=== PATIENT | female | born 1930 | race Caucasian/White ===

== ENCOUNTER 2016-10-08 11:11 | Outpatient (CLI) | payer MEDICARE, OTHER | END 2016-10-08 11:12 | disposition home or self-care (01) | DX: E78.00 Pure hypercholesterolemia, unspecified (principal); I48.0 Paroxysmal atrial fibrillation ==

== ENCOUNTER 2017-03-12 07:31 | Day surgery (SDC) | payer MEDICARE, OTHER ==
[~2017-03-12 07:31] MED LIST: CYCLOPENTOLATE 1% OPHTH DROPS 2 ML ONE; KETOROLAC 0.45% OPHTH DROPS ONE; PHENYLEPHRINE 2.5% OPHTH 2 ML DROPS ONE; PROPARACAINE 0.5% OPHTH DROPS 15 ML ONE
[2017-03-12] MEDS ORDERED: CYCLOPENTOLATE 1% OPHTH DROPS 2 ML OPTH ONE (07:50)
[2017-03-12] MEDS ORDERED: PHENYLEPHRINE 2.5% OPHTH 2 ML DROPS OPTH ONE (07:50)
[2017-03-12] MEDS ORDERED: KETOROLAC 0.45% OPHTH DROPS OPTH ONE (07:50)
[2017-03-12] MEDS ORDERED: PROPARACAINE 0.5% OPHTH DROPS 15 ML OPTH ONE ×2 (07:50→08:57)
[2017-03-12] MEDS ORDERED: LACTATED RINGERS 500 ML IV ONE (08:04)
[2017-03-12] MEDS ORDERED: LACTATED RINGERS 1,000 ML IV ONE (08:04)
[2017-03-12] MEDS ORDERED: BRIMONIDINE 0.2% OPHTH DROPS 5 ML OPTH ONE (08:56)
[2017-03-12] MEDS ORDERED: EPINEPHrine 1 MG/ML AMP IVP ONE (08:56)
[2017-03-12] MEDS ORDERED: CHONDR SULF/HYALURONATE SYRINGE IO ONE (08:57)
[2017-03-12] MEDS ORDERED: TIMOLOL 0.5% OPHTH DROPS OPTH ONE (08:57)
[2017-03-12] MEDS ORDERED: BSS/LIDOCAINE/EPINEPHRINE 1 ML SYRINGE IO ONE ×2 (08:57)
[2017-03-12] MEDS ORDERED: TRIAMCIN/MOXIFLOX/VANCO 1 ML VIAL IO ONE ×2 (08:58)
[2017-03-12 09:57] VITALS: BP 123/73
--- NOTE | 2017-03-13 06:32 | OPERATIVE REPORT ---
PREOPERATIVE DIAGNOSIS: Visually significant cataract right eye. Cataract surgery was performed on roberto longoria left eye 24 June 2012 and astigmatism correction of that left eye was also performed [place] [facility] [place] LenSx [place]. POSTOPERATIVE DIAGNOSIS: Visually significant cataract right eye. Cataract surgery was performed on the left eye 24 June 2012 and astigmatism correction of that left eye was also performed today [facility] [place] LenSx laser. NAME OF PROCEDURE: Phacoemulsification posterior chamber intraocular lens implant, right eye. SURGEON: Renaldo Burden M.D. ANESTHESIA: Monitored anesthesia care. COMPLICATIONS: None. OPERATIVE INDICATIONS: This is an 86-year-old woman with progressive vision loss in the right eye due to 2+ nuclear sclerotic and 3+ cortical cataract. Best corrected visual acuity was 20/25 with glare to 20/80 in the right eye. INDICATIONS FOR SURGERY: Difficulty seeing street signs, difficulty driving in low light or night, di fficulty driving at night because of headlights and difficulty with glare of bright lights in any sit uation. She was consented at length concerning risks and benefits of cataract surgery after which she expressed a desire to proceed with surgery. OPERATIVE PROCEDURE: The patient was taken into OR #2 and placed under monitored anesthesia care. A s urgical timeout was conducted confirming correct patient, correct procedure and correct surgical site s. She was placed under the LenSx laser and her left eye was docked to the laser interface. The laser performed ocular keratotomy incisions on the left eye to correct the astigmatism. The laser was then undocked from the left eye and then docked to the right eye and the laser on the right eye performed a capsulotomy, lens softening, phaco-wounds and ocular keratotomy incision. After the right eye was undocked, she was then moved to the operating microscope, given topical anesthesia and prepped and dr steven in the usual sterile fashion. The eye was entered at 12 and 9 o'clock positions. Intracameral Sh ugarcaine was injected into the anterior chamber followed by Viscoat. Capsulorhexis flap created by t he LenSx laser was removed from the anterior chamber. The nucleus was hydrodissected and phacoemulsif ied. The cortex was evacuated using automated and infusion aspiration. Provisc was injected in the ca psular bag and a 21.5 Diopter intraocular lens inserted into the bag. Approximately 0.8 mL of a mixtu re of triamcinolone, moxifloxacin, vancomycin was injected in the subconjunctival and superior quadra nt for infection and inflammation prophylaxis. I/A was used to evacuate the viscoelastic structures. The eye was inflated to a physiologic pressure using balanced salt solution and found to be watertigh t. The patient was taken from the operating room in good condition and postoperative instructions. JOB #: [id number] EXT JOB #:[id number]
== END 2017-03-12 07:32 | disposition home or self-care (01) ==
LOC: SDS 07:31
PROVIDERS: ATTEND Ophthalmology
PROC: 08RJ3JZ Replacement of Right Lens with Synthetic Substitute, Percutaneous Approach (ICD-10-PCS; principal; 2017-03-12 08:30)
DX: H25.811 Combined forms of age-related cataract, right eye (principal); R41.0 Disorientation, unspecified; I10 Essential (primary) hypertension; I48.91 Unspecified atrial fibrillation; Z79.01 Long term (current) use of anticoagulants; Z96.641 Presence of right artificial hip joint

== ENCOUNTER 2017-03-12 10:11 | Emergency (ER) | payer MEDICARE, OTHER ==
--- NOTE | 2017-03-12 10:54 | ED Physician Documentation ---
History of Present Illness - Stated complaint Stated Complaint: POST SURG COMPLICATIONS - Chief complaint Chief Complaint: Neuro - Additonal information Additional information: hx from pt and DOP 86 f on coumadin for a fib had cataract surgery at this AM awoke 545 in normal health from 630AM-720AM while still at home she had a period of extreme and very atypical confusion and memory loss - repeatedly asked the same questions and could not rememeber where things were now resolved DOP states she checked her mother and there were no speech visopn motor or sensory abn other than the acute confuions no LOPEZ CP AP no recent fever cough NVD did not have to stop coumadin prior to surgery FSBS in OR was not low had her surgery and then sent to ER for work up Review of Systems Constitutional: denies: Fever, Chills Eyes: denies: Decreased vision Ears: denies: Loss of hearing Cardiac: denies: Chest pain / pressure Respiratory: denies: Dyspnea, Cough GI: denies: Abdominal Pain Neurologic: reports: Confused. denies: Generalized weakness, Focal weakness, Numbness, Difficulty speaking, Headache, Head injury Endocrine: reports: Easy bruising / bleeding Immunocompromised: denies: Immunocompromised PD PAST MEDICAL HISTORY - Past Medical History Cardiovascular: Hypertension, Atrial fibrillation Respiratory: None, Tuberculosis Endocrine/Autoimmune: None GI: None : Other HEENT: Chronic vision loss Psych: None Musculoskeletal: Osteoarthritis Derm: None - Past Surgical History Past Surgical History: Yes General: Cholecystectomy, Appendectomy Ortho: Hip replacement - Present Medications Home Medications: Ambulatory Orders Medication Instructions Recorded Confirmed Acetaminophen [Tylenol] 650 mg PO Q6H PRN #30 tablet 10/17/13 03/12/17 Potassium Chloride 20 meq PO BID 10/17/13 03/12/17 Verapamil HCl [Verapamil ER] 240 mg PO HS 10/17/13 03/12/17 Warfarin Sodium [Coumadin] 2 mg PO DAILY 10/17/13 03/12/17 Triamterene [Dyrenium] 50 mg PO DAILY 03/12/17 03/12/17 - Allergies Allergies/Adverse Reactions: Allergies Allergy/AdvReac Type Severity Reaction Status Date / Time No Known Drug Allergies Allergy Verified 10/17/13 07:53 - Social History Does the pt smoke?: No Smoking Status: Never smoker Does the pt drink ETOH?: Yes ETOH Use: Wine Does the pt have substance abuse?: No - POLST Patient has POLST: No PD ED PE NORMAL - Vitals Vital signs reviewed: Yes - General General: Alert and oriented X 3 - HEENT HEENT: No: PERRL (post cataract surgery with shield on dilated R eye) - Neck Neck: Supple, no meningeal sign - Cardiac Cardiac: RRR - Respiratory Respiratory: No respiratory distress, Clear bilaterally - Abdomen Abdomen: Soft, Non tender - Neuro Neuro: Alert and oriented X 3, 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, No motor deficit, No sensory deficit, Normal speech, Other (NIHSS at 1045 zero) Results - Vitals Vitals: Vital Signs - 24 hr 03/12/17 03/12/17 03/12/17 10:14 12:35 14:12 Temperature 36.7 C 36.4 C L Heart Rate 100 83 74 Respiratory 18 16 19 Rate Blood Pressure 138/103 H 110/68 148/76 H O2 Saturation 95 97 97 Oxygen O2 Source Room air - EKG (time done) 1108 Rate: Rate (enter#) (83) Rhythm: Atrial fibrillation Ischemia: Non specific changes - Labs Labs: Laboratory Tests 03/12/17 03/12/17 03/12/17 10:49 10:49 10:49 WBC 5.8 RBC 5.05 Hgb 16.5 H Hct 49.5 H MCV 98.0 MCH 32.8 H MCHC 33.4 RDW 14.4 Plt Count 182 MPV 8.6 Neut # 4.6 Lymph # 0.7 L [place] # 0.3 Eos # 0.0 Baso # 0.1 Absolute Nucleated RBC 0.00 Nucleated RBCs 0.1 PT 32.7 H INR 2.9 H Sodium 140 Potassium 3.1 L Chloride 106 Carbon Dioxide 25 Anion Gap 9.0 BUN 22 H Creatinine 1.2 H Estimated GFR (MDRD) 42 L Glucose 176 H Calcium 9.5 Urine Color Urine Clarity Urine pH Ur Specific [place] Urine Protein Urine Glucose (UA) Urine Ketones Urine Occult Blood Urine Nitrite Urine Bilirubin Urine Urobilinogen Ur Leukocyte Esterase Urine RBC Urine WBC Ur Squamous Epith Cells Urine Bacteria Ur Microscopic Review Urine Culture Comments 03/12/17 11:05 WBC RBC Hgb Hct MCV MCH MCHC RDW Plt Count MPV Neut # Lymph # [place] # Eos # Baso # Absolute Nucleated RBC Nucleated RBCs PT INR Sodium Potassium Chloride Carbon Dioxide Anion Gap BUN Creatinine Estimated GFR (MDRD) Glucose Calcium Urine Color YELLOW Urine Clarity HAZY Urine pH 6.0 Ur Specific [place] 1.020 Urine Protein NEGATIVE Urine Glucose (UA) NEGATIVE Urine Ketones NEGATIVE Urine Occult Blood SMALL H Urine Nitrite NEGATIVE Urine Bilirubin NEGATIVE Urine Urobilinogen 0.2 (NORMAL) Ur Leukocyte Esterase SMALL H Urine RBC 0-5 Urine WBC 6-10 H Ur Squamous Epith Cells MOD Squamous H Urine Bacteria Few Ur Microscopic Review INDICATED Urine Culture Comments NOT INDICATED - Rads (name of study) CTH Radiology: See rad report (no acute) carotid doppler Radiology: See rad report (mild plaque, no stenosis) echo Radiology: See rad report (no thrombus, but there was a mild to mod pericardial effusion without tamponade and a thickened septum with some outflow obstruction per architectural technician) PD MEDICAL DECISION MAKING - ED course ED course: possibel TIA therapeutic on coumadin and no thrombus on echo, carotics clean, neg CTH - feel safe to dc but echo was abn - pericard effusion and peft vent septal hypertophy with some outflow obstruction - these are unlikely to be realted to pt sx today, likely not new just found on eval for another problem, d/w no doc cardio at [facility] (pts a fib managed by PMD, 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) and Dr Dyer agrees to see pt in fup at time od dc I note a set of vitals documenting sat 86% - pt is not SOA - no cough - nl sats the rest of the day - rechecked and it is mid 90s again on RA with no intervention - will dc as planned Departure - Departure Disposition: 01 Home, Self Care Clinical Impression: Confusion Condition: Good Follow-Up: Douglas Villegas MD [Provider Admit Priv/Credential] - Comments: The period of confusion this morning may have been a TIA / mini stroke But the ER work up today - including a CT brain, carotid dopplers and an echocardiogram did not show any potentially fixable cause of strokes or mini strokes - and your coumadin level is therapeutic So, since you are feeling better, I think it is safe for you to go home. Your echocardiogram did show two abnormalities though - some fluid around the heart and a thickened septum making it difficult for the blood to be pumped out of the heart - I spoke to a door furring installer at [place] in [place] and she would like to see you in her clinic for further evaluation - please call the office at and ask for Christine Also follow up with Dr Villegas when he gets back And you potassium was sliughtly low so please keep taking your potassium supplements and have Dr Villegas recheck the level
[2017-03-12 11:00] LABS: BASOPHILS # (AUTO) 0.1 10^3/uL (0.0-0.1); BASOPHILS % (AUTO) 0.9 %; EOSINOPHILS % (AUTO) 0.8 %; HCT - HEMATOCRIT 49.5 % (37.0-47.0); HGB - HEMOGLOBIN 16.5 g/dL (12.0-16.0); LYMPHOCYTES # (AUTO) 0.7 10^3/uL (1.5-3.5); LYMPHOCYTES % (AUTO) 12.8 %; MEAN CORPUSCULAR HEMOGLOBIN 32.8 pg (27.0-31.0); MEAN CORPUSCULAR HGB CONC 33.4 g/dL (32.0-36.0); MEAN PLATELET VOLUME 8.6 fL (7.9-10.8); MONOCYTES # (AUTO) 0.3 10^3/uL (0.0-1.0); MONOCYTES % (AUTO) 5.8 %; NEUTROPHILS # (AUTO) 4.6 10^3/uL (1.5-6.6); NEUTROPHILS % (AUTO) 79.7 %; NUCLEATED RED BLOOD CELLS AUTO 0.1 /100WBC; RED BLOOD COUNT 5.05 10^6/uL (4.20-5.40); RED CELL DISTRIBUTION WIDTH 14.4 % (12.0-15.0); UNCORRECTED WHITE BLOOD COUNT 5.8 x10^3/uL; WHITE BLOOD COUNT 5.8 x10^3/uL (4.8-10.8)
[2017-03-12 11:04] LABS: CALCIUM 9.5 mg/dL (8.5-10.3); CREATININE 1.2 mg/dL (0.4-1.0); POTASSIUM 3.1 mmol/L (3.5-5.0)
[2017-03-12 11:07] LABS: INR 2.9 (0.8-1.2); PT - PROTHROMBIN TIME 32.7 secs (9.9-12.6)
[2017-03-12 11:21] LABS: BILIRUBIN,URINE NEGATIVE (NEGATIVE); UA w/ MICROSCOPIC CHARGE YES
[2017-03-12 11:39] LABS: UR CULTURE IF IND NOT INDICATED
--- NOTE | 2017-03-12 12:01 | CT Preliminary Report ---
Exam: CT Head W/O IMPRESSION: 1. Findings of chronic mild cortical volume loss and chronic microangiopathy. 2. No evidence of acute intracranial hemorrhage. [facility] SITE ID: [id number]
--- NOTE | 2017-03-12 12:04 | CT Report ---
EXAM: CT HEAD EXAM DATE: 03/12/2017 11:30 AM. CLINICAL HISTORY: Tia sx on coumadin. COMPARISON: None. TECHNIQUE: Multiaxial CT images were obtained from the foramen magnum to the vertex. IV contrast: Non e. Reformats: Coronal. In accordance with CT protocol optimization, one or more of the following dose reduction techniques w ere utilized for this exam: automated exposure control, adjustment of mA and/or KV based on patient s ize, or use of iterative reconstructive technique. FINDINGS: There is prominence of the extra-axial CSF spaces, most pronounced in the frontal regions. Ventricles appear normal in size and position. Periventricular and deep white matter hypodensities, more pronou nced at the left external and extreme capsule. No evidence of acute intracranial hemorrhage or mass e ffects. Visualized portions of the paranasal sinuses appear normally aerated. No fracture. No destruc tive bone lesion. IMPRESSION: 1. Findings of chronic mild cortical volume loss and chronic microangiopathy. 2. No evidence of acute intracranial hemorrhage. [facility] Referring Provider Line: [phone] SITE ID: [id number]
[2017-03-12 15:04] VITALS: BP 132/74
--- NOTE | 2017-03-13 09:22 | Ultrasound Report ---
CAROTID DUPLEX: 03/12/2017 CLINICAL INDICATION: TIA. TECHNIQUE: Real-time sonographic vascular imaging was performed by the cobbler mckay through the carotid arteries utilizing both color-flow and Doppler spectral analysis. Multiple veterans service representative static images were saved for review. Vessel PSV cm/sec 2D Plaque Estimate % ICA/CCA PSV EDV cm/sec % Stenosis RCCA Prox 75 -- RCCA Dist 37 4 RECA 68 -- RT BULB 37 -- 1.0 6 MAXIMO Prox 32 -- 0.86 7 MAXIMO Mid 51 -- 0.84 15 MAXIMO Dist 52 -- 1.41 16 RVA 41 RVA flow direction: Antegrade. Vessel PSV cm/sec 2D Plaque Estimate % ICA/CCA PSV EDV cm/sec % Stenosis LCCA Prox 63 -- LCCA Dist 38 8 LECA 68 -- LFT BULB 33 -- 0.87 8 LICA Prox 27 -- 0.71 9 LICA Mid 56 -- 1.47 15 LICA Dist 58 -- 1.53 25 LVA 33 LVA flow direction: Antegrade. Velocity criteria are extrapolated from diameter data as defined by the Society of Radiologists in Ultrasound Consensus Conference Radiology 2003; 229; 340-346. Degree of Stenosis % ICA PSV cm/sec Plaque Estimate % ICA/CCA RSV Ratio ICA EDV cm/sec Normal < 125 None < 2.0 < 40 <50 < 125 < 50 < 2.0 < 40 50-69 125 - 130 >/= 50 2.0 - 4.0 40 - 100 >/= 70 but less than near occlusion > 230 >/= 50 > 4.0 > 100 Near occlusion High, low, or undetectable Visible lumen Variable Variable Total occlusion Undetectable No detectable lumen Not applicable Not applicable FINDINGS RIGHT: There is mild plaquing in the right carotid bifurcation, without evidence of a focal hemodynamically significant carotid stenosis. LEFT: There is mild plaquing in the left carotid bifurcation, without evidence of a focal hemodynamically significant stenosis. The vertebral arteries demonstrate antegrade flow bilaterally. IMPRESSION: NO EVIDENCE OF A FOCAL HEMODYNAMICALLY SIGNIFICANT CAROTID STENOSIS. MTDD
== END 2017-03-12 15:09 | disposition home or self-care (01) ==
LOC: ED 10:11
DX: R41.0 Disorientation, unspecified (principal); I48.91 Unspecified atrial fibrillation; I31.3 Pericardial effusion (noninflammatory); I10 Essential (primary) hypertension; E87.6 Hypokalemia; Z98.890 Other specified postprocedural states; Z79.01 Long term (current) use of anticoagulants
CPT/HCPCS: 36415; 70450; 80048; 81001; 81003; 85025; 85610; 87086; 93005; 93306; 93880; 99284

== ENCOUNTER 2017-06-08 13:07 | Outpatient (CLI) | payer MEDICARE, OTHER ==
[2017-06-08 19:27] LABS: BASOPHILS # (AUTO) 0.1 10^3/uL (0.0-0.1); BASOPHILS % (AUTO) 1.1 %; EOSINOPHILS # (AUTO) 0.1 10^3/uL (0.0-0.7); EOSINOPHILS % (AUTO) 0.9 %; HCT - HEMATOCRIT 52.4 % (37.0-47.0); HGB - HEMOGLOBIN 17.3 g/dL (12.0-16.0); LYMPHOCYTES # (AUTO) 0.9 10^3/uL (1.5-3.5); LYMPHOCYTES % (AUTO) 16.3 %; MEAN CORPUSCULAR HEMOGLOBIN 32.9 pg (27.0-31.0); MEAN CORPUSCULAR HGB CONC 32.9 g/dL (32.0-36.0); MONOCYTES # (AUTO) 0.5 10^3/uL (0.0-1.0); MONOCYTES % (AUTO) 9.4 %; NEUTROPHILS % (AUTO) 72.3 %; NUCLEATED RED BLOOD CELLS AUTO 0.2 /100WBC; RED BLOOD COUNT 5.24 10^6/uL (4.20-5.40); RED CELL DISTRIBUTION WIDTH 14.8 % (12.0-15.0); UNCORRECTED WHITE BLOOD COUNT 5.5 x10^3/uL; WHITE BLOOD COUNT 5.5 x10^3/uL (4.8-10.8)
[2017-06-08 19:36] LABS: ALBUMIN/GLOBULIN RATIO 1.6 (1.0-2.2); BILIRUBIN,TOTAL 0.8 mg/dL (0.2-1.0); BUN - BLOOD UREA NITROGEN 20 mg/dL (6-20); CALCIUM 10.2 mg/dL (8.5-10.3); CARBON DIOXIDE - CO2 26 mmol/L (21-32); CHLORIDE 102 mmol/L (101-111); GFR - MDRD 52 (>89); GLUCOSE 86 mg/dL (70-100); POTASSIUM 4.1 mmol/L (3.5-5.0); SODIUM 138 mmol/L (135-145); TOTAL PROTEIN 6.8 g/dL (6.7-8.2)
[2017-06-08 19:42] LABS: THYROID STIMULATING HORMONE 1.42 uIU/mL (0.34-5.60)
[2017-06-08 19:53] LABS: FOLATE 21.8 ng/mL (5.90 - >24.8)
== END 2017-06-08 13:08 | disposition home or self-care (01) ==
LOC: LAB.WCP 13:07
PROVIDERS: ATTEND Physician Assistant Medical
DX: R41.3 Other amnesia (principal); I48.0 Paroxysmal atrial fibrillation; E55.9 Vitamin D deficiency, unspecified; I10 Essential (primary) hypertension; E87.6 Hypokalemia; Z79.01 Long term (current) use of anticoagulants
CPT/HCPCS: 36415; 80053; 82306; 82607; 82746; 84443; 85025

== ENCOUNTER 2017-06-29 12:49 | Outpatient (CLI) | payer MEDICARE, OTHER ==
--- NOTE | 2017-06-29 16:27 | Ultrasound Report ---
RIGHT BREAST ULTRASOUND: 06/29/2017 CLINICAL INDICATION: Palpable abnormality right breast. TECHNIQUE: Real-time scanning was performed with litigation claim representative static images obtained. FINDINGS: Ultrasound of the palpable abnormality was performed. At the 9:30 position, 4 cm from the nipple, there is a 3.8 x 2.7 x 2.6 cm hypoechoic mass with associ ated calcifications. The margins are lobulated. There is peripheral vascularity present. The findings are highly suggestive of malignancy. No axillary adenopathy is appreciated. IMPRESSION: FINDINGS HIGHLY SUGGESTIVE OF MALIGNANCY, WITH A HYPOECHOIC 3.8 CM MASS CORRELATING WITH THE PALPABLE AND MAMMOGRAPHIC ABNORMALITY. RECOMMENDATION: BIOPSY. THE MASS APPEARS AMENABLE TO ULTRASOUND-GUIDED CORE NEEDLE BIOPSY. BIRADS CATEGORY 5-HIGHLY SUGGESTIVE OF MALIGNANCY. Results and recommendations discussed with the patient at the time of the examination, and called to Dr. Eng, covering for Dr. Villegas, on 06/29/2017. Biopsy is scheduled for 07/14/2017 at 9:45 a.m. JOB #: [id number] EXT JOB #:[id number]
--- NOTE | 2017-06-30 10:28 | Mammography Report ---
DIGITAL DIAGNOSTIC BILATERAL MAMMOGRAM: 06/29/2017 CLINICAL INDICATION: Palpable mass right upper outer quadrant. COMPARISON: 09/15/2011, 08/26/2011, 03/13/2008. TECHNIQUE: Bilateral CC and MLO views, right true lateral view. A marker was placed at the site of the palpable abnormality. FINDINGS: The breasts again demonstrate scattered fibroglandular densities bilaterally. In the right upper outer quadrant, at the site of palpable abnormality, there is an approximately 3 cm mass, with associated calcifications. Please also refer to right breast ultrasound of the same day. No mammographically suspicious findings are appreciated in the left breast. IMPRESSION: FINDINGS HIGHLY SUGGESTIVE OF MALIGNANCY, WITH A HYPOECHOIC SHADOWING MASS ON ULTRASOUND CORRELATING WITH THE MAMMOGRAPHIC AND PALPABLE ABNORMALITY. RECOMMENDATION: BIOPSY. THE LESION APPEARS AMENABLE TO ULTRASOUND-GUIDED CORE NEEDLE BIOPSY. BIRADS CATEGORY 5-HIGHLY SUGGESTIVE OF MALIGNANCY. Results and recommendations discussed with the patient at the time of the examination, and called to Dr. Eng, covering for Dr. Villegas, on 06/29/2017. Biopsy is scheduled for 07/14/2017 at 9:45 a.m. STANDARD QUALIFYING STATEMENTS 1. This examination was reviewed with the aid of Computer-Aided Detection (CAD). 2. A negative or benign imaging report should not delay biopsy if clinically suspicious findings are present. Consider surgical consultation if warranted. More than 5% of cancers are not identified by imaging. 3. Dense breasts may obscure an underlying neoplasm. JOB #: [id number] EXT JOB #: [id number] DIVYA
== END 2017-06-29 12:50 | disposition home or self-care (01) ==
LOC: DI 12:49
PROVIDERS: ATTEND Family Medicine
DX: N63.11 Unspecified lump in the right breast, upper outer quadrant (principal)
CPT/HCPCS: 76642; G0204; 77066

== ENCOUNTER 2017-07-27 09:10 | Outpatient (CLI) | payer MEDICARE, OTHER ==
[2017-07-27] MEDS ORDERED: BUFFERED LIDOCAINE 10 ML SYRINGE IU ONE (11:29)
[2017-07-27] MEDS ORDERED: BUPIVACAINE 0.25%-EPI 1:200000 PF 30 ML VIAL SUBQ ONE (11:29)
[2017-07-27 15:12] VITALS: BP 149/92
--- NOTE | 2017-07-28 09:36 | Ultrasound Report ---
ULTRASOUND-GUIDED CORE NEEDLE BIOPSY RIGHT BREAST: 07/27/2017 CLINICAL INDICATION: Suspicious mass right upper outer quadrant. FINDINGS: Following obtaining informed consent, the patient's right breast was prepped and draped in the usual sterile fashion. The skin and soft tissues were anesthetized with lidocaine. Using a 12-gauge Celero vacuum-assisted device, four specimens were obtained. A Celero marker was placed into the biopsy cavity under ultrasound guidance. The patient was taken to a separate mammography machine, and a two-view digital mammogram was performed, documenting the marker in the lesion and no significant post-biopsy hematoma. The wound was dressed and ice applied. The patient was observed for approximately 15 minutes, then was discharged from [facility] in good condition following instructions on wound care and obtaining biopsy results. The tissue was sent for histologic analysis. IMPRESSION: ULTRASOUND-GUIDED BIOPSY OF THE RIGHT BREAST. AN ADDENDUM WILL BE MADE TO THIS REPORT WHEN PATHOLOGY IS REVIEWED TO ESTABLISH CONCORDANCE. DIVYA
== END 2017-07-27 09:11 | disposition home or self-care (01) ==
LOC: DI 09:10
PROVIDERS: ATTEND Family Medicine
DX: C50.411 Malignant neoplasm of upper-outer quadrant of right female breast (principal); Z17.0 Estrogen receptor positive status [ER+]
CPT/HCPCS: 19083; G0206; 88305; 88341; 88342; 88360

== ENCOUNTER 2017-08-22 08:37 | Outpatient (CLI) | payer MEDICARE, OTHER ==
[~2017-08-22 08:37] MED LIST changes: -CYCLOPENTOLATE 1% OPHTH DROPS 2 ML ONE; +IOPAMIDOL-300 100 ML VIAL ONE; +IOPAMIDOL-300 50 ML VIAL ONE; -KETOROLAC 0.45% OPHTH DROPS ONE; -PHENYLEPHRINE 2.5% OPHTH 2 ML DROPS ONE; -PROPARACAINE 0.5% OPHTH DROPS 15 ML ONE
[2017-08-22] MEDS ORDERED: IOPAMIDOL-300 50 ML VIAL PO ONE (11:16)
[2017-08-22] MEDS ORDERED: IOPAMIDOL-300 100 ML VIAL IVP ONE (11:16)
--- NOTE | 2017-08-22 14:06 | CT Report ---
EXAM: CT ABDOMEN AND PELVIS EXAM DATE: 08/22/2017 11:17 AM. CLINICAL HISTORY: R BREAST CANCER. COMPARISONS: 10/17/2013 TECHNIQUE: Routine helical CT imaging was performed through the abdomen and pelvis. IV contrast: 100M L OF ISOVUE 300. Enteric contrast: No. Reconstructions: Coronal and sagittal. In accordance with CT protocol optimization, one or more of the following dose reduction techniques w ere utilized for this exam: automated exposure control, adjustment of mA and/or KV based on patient s ize, or use of iterative reconstructive technique. FINDINGS: Lung Bases: Pericardial effusion, incidentally noted. Prominent interstitial markings. Three small (2 -3 mm) right lower lobe nodules, incompletely visualized on this examination. Liver: Grossly normal. No masses. Gallbladder/Bile Ducts: Gallbladder surgically absent. No ductal dilation. Spleen: Normal. Pancreas: Fatty replaced. Adrenal Glands: Normal. Kidneys: Diffuse bilateral cortical thinning. No obstructive uropathy. Peritoneal Cavity/Bowel: Moderate retained stool. Scattered diverticula are most concentrated in the sigmoid distribution. No wall thickening . No free or pneumatosis. Few small / shotty mesenteric, ret roperitoneal and pelvic lymph nodes without renato adenopathy. Pelvic Organs: The bladder and visualized pelvic organs are grossly unremarkable. Vasculature: Advanced atherosclerotic calcifications in the aorta and distal arteries. No aneurysmal dilation. Bones: Demineralization and multilevel degenerative changes. Other: Fat-containing inguinal hernias. Post right hip prostheses. Possible adjacent intramuscular lipoma. No acute IMPRESSION: 1. Small pulmonary nodules noted in the right lung base, as described. Recommend thoracic CT for furt her evaluation in the setting of primary malignancy. 2. No evidence for intra-abdominal metastases metastatic disease. 3. Diverticulosis without evidence for active diverticulitis. Reference additional comments above. [facility] Referring Provider Line: [phone] SITE ID: [id number]
== END 2017-08-22 08:38 | disposition home or self-care (01) ==
LOC: LAB 08:37
PROVIDERS: ATTEND Surgery
DX: R91.8 Other nonspecific abnormal finding of lung field (principal); K57.90 Diverticulosis of intestine, part unspecified, without perforation or abscess without bleeding
CPT/HCPCS: 36415; 74177; 82565; Q9967

== ENCOUNTER 2017-09-01 08:26 | Day surgery (SDC) | payer MEDICARE, OTHER ==
[2017-09-01] MEDS ORDERED: LACTATED RINGERS 1,000 ML IV ONE ×2 (08:40→12:23)
[2017-09-01] MEDS ORDERED: ceFAZolin 2 GM/50 ML 2 GM/50 ML BAG IV ONE (08:41)
[2017-09-01] MEDS ORDERED: BUPIVACAINE 0.5% PF 30 ML VIAL INFIL ONE ×2 (11:52→12:51)
[2017-09-01] MEDS ORDERED: PROPOFOL 200 MG/20 ML VIAL IVP ONE (12:30)
[2017-09-01] MEDS ORDERED: LIDOCAINE-MPF 2% 5 ML VIAL IM ONE (12:30)
[2017-09-01] MEDS ORDERED: fentaNYL 100 MCG/2 ML VIAL IVP ONE (12:30)
[2017-09-01] MEDS ORDERED: MIDAZOLAM 2 MG/2 ML VIAL IVP ONE (12:30)
[2017-09-01] MEDS ORDERED: PHENYLEPHRINE 10 MG/ML VIAL IV ONE (12:30)
[2017-09-01] MEDS ORDERED: SUCCINYLCHOLINE 200 MG/10 ML VIAL IVP ONE (12:30)
--- NOTE | 2017-09-01 13:26 | OPERATIVE REPORT ---
Operative Report - General Procedure Date: 09/01/17 Planned Procedure: Right simple mastectomy Pre-Op Diagnosis: Right breast cancer Procedure Performed: Right simple mastectomy Post Op Diagnosis: Right breast cancer - Procedure Note Primary Surgeon: Ishan Anthony MD Anesthesia Provider: Christine Samuels/Romero Singh Anesthesia Technique: General ET tube IV Fluids (mL): 1,000 Estimated Blood Loss (mL): 30 Drain/Tube Type: David drain (19 Fr in RIGHT axilla going across the chest wall) Complications: None. - Other Other Information/Narrative: OPERATIVE DESCRIPTION/REPORT: After verbal and written informed consent was obtained detailing the risks of infection, bleeding requiring transfusion with its risks, nerve injury, and , and after I met with the patient confirming the surgery and the site of the surgery and after initialing the site of the surgery with a surgical marker , the patient was brought to the operative suite and placed supine on the operating table. Great care was taken to avoid pressure points to prevent pressure necrosis or nerve injury. Monitoring devices were applied along with TEDs and pneumatic compressive stockings (to prevent DVT). The patient received preoperative antibiotics for surgical prophylaxis. Christine Samuels and delmer Singh sedated and anesthetized the patient for the entire procedure. The patient was prepped and draped in the usual sterile manner. With the patient draped my initials were clearly visible. A "time in" then confirmed that the patient was identified with 3 identifiers (name, date and medical record number), the history and physical was in the chart, the signed consent confirming the procedure was in the chart, the patient was in the correct position, the aforementioned prophylactic measures were in place or given, we had the correct personnel and equipment to complete the procedure and that anesthesia, surgery and nursing were given an opportunity to express any concerns. With the agreement of everyone in the room, we proceeded with the operation. Great care was taken to ensure that the arm was placed in a relaxed manner away from the body to facilitate exposure and to avoid nerve injury. An elliptical incision was made to incorporate the nipple-areolar complex and the previous biopsy site. The skin incision was carried down to the subcutaneous fat, but no further. Using traction and counter traction, the upper flap was dissected from the chest wall, medially to the sternal border, superiorly to the clavicle, laterally to the anterior border of the latissimus dorsi muscle, and superolaterally to the insertion of the pectoralis major muscle. The lower flap was dissected in a similar manner down to the insertion of the pectoralis fascia overlying the fifth rib medially and laterally out to the latissimus dorsi. Bovie electrocautery was used for the majority of the dissection and hemostasis, tying only the large vessels with 2-0 Vicryl. The breast was dissected from the pectoralis muscle beginning medially and progressing laterally, removing the pectoralis fascia entirely. Once the lateral border of the pectoralis major muscle was identified, the pectoralis muscle was retracted medially and the interpectoral fat was removed with the specimen. Copious water lavage was used to remove any debris, and meticulous hemostasis was obtained with Bovie electrocautery. A David drain was inserted through a separate stab incision below the initial incision and cut to fit. The drain was directed anteriorly across the pectoralis major. This was secured to the skin using 3-0 Nylon which was Saulo- sandaled about the drain. The subcutaneous tissue was approximated using interrupted simple 2-0 Vicryl. The skin incision was approximated with 4-0 Monocryl in a running subcuticular manner. 30 mL of 1/2% marcaine was injected for pain control. Mastisol and steristrips were applied. A dressing was applied. The drain was placed on ``grenade suction. At this point a time out was performed that confirmed that all the counts were correct, the procedure that was performed, the blood loss, the urine output, the IV fluids administered , and the patients condition. Having tolerated the procedure well, the patient was subsequently extubated and taken to recovery room in good and stable condition.
[2017-09-01] MEDS ORDERED: LACTATED RINGERS 1,000 ML IV SCH ×2 (13:30→19:30)
[2017-09-01] MEDS ORDERED: ONDANSETRON 4 MG/2 ML VIAL IVP PRN (15:03)
[2017-09-01] MEDS ORDERED: oxyCOD/ACETAMIN 5 MG/325 MG TABLET PO PRN (15:03)
[2017-09-01] MEDS ORDERED: BENZOCAINE/MENTHOL LOZENGE MM PRN (15:51)
[2017-09-01] MEDS: PHENOL THROAT SPRAY 177 ML MM PRN (16:27)
[2017-09-01] MEDS: TRIAMT/HCTZ 37.5 MG/25 MG CAPSULE PO SCH (20:49)
[2017-09-01] MEDS ORDERED: VERAPAMIL ER 120 MG TABLET PO SCH (21:00)
[2017-09-02] MEDS: PHENOL THROAT SPRAY 177 ML MM PRN (00:10)
[2017-09-02 08:42] VITALS: BP 118/75
[2017-09-02] MEDS: TRIAMT/HCTZ 37.5 MG/25 MG CAPSULE PO SCH (09:06)
== END 2017-09-02 11:00 | disposition home or self-care (01) ==
LOC: SDS 08:26 → OBS 14:34 → SDS 09-02 11:00
PROVIDERS: ATTEND Surgery
PROC: 0HBT0ZZ Excision of Right Breast, Open Approach (ICD-10-PCS; principal; 2017-09-01 10:30)
DX: C50.911 Malignant neoplasm of unspecified site of right female breast (principal); Z17.0 Estrogen receptor positive status [ER+]; I48.91 Unspecified atrial fibrillation; Z79.01 Long term (current) use of anticoagulants; I10 Essential (primary) hypertension; Z85.51 Personal history of malignant neoplasm of bladder
CPT/HCPCS: 19303; A9270; J0690; J7120

== ENCOUNTER 2017-09-08 11:10 | Outpatient (CLI) | payer MEDICARE, OTHER ==
--- NOTE | 2017-09-08 19:42 | CT Report ---
DATE OF SERVICE: 09/08/2017 CT CHEST WITHOUT CONTRAST: 09/08/2017 CLINICAL INDICATION: Breast cancer, nodules seen on lung bases on abdominal CT. Axial CT images of the chest were obtained without intravenous contrast. COMPARISON: Images of the lung bases from 08/22/2017. The heart and great vessels demonstrate atherosclerotic disease. Calcified precarinal lymph node is noted. There is a small pericardial effusion present. The lungs demonstrate multiple bilateral noncalcified pulmonary nodules, varying in size from 3 mm to 7 mm. The appearance is suspicious for metastatic disease. No calcified granuloma is appreciated. Interstitial opacities are seen at the lung bases, which may represent dependent pulmonary edema or lymphangitic carcinomatosis. No effusion or pneumothorax is appreciated. Surgical drain of right mastectomy is noted. Limited evaluation of upper abdominal structures demonstrates normal adrenal glands. Osseous structures demonstrate degenerative changes. Right-sided thyroid goiter is incidentally noted. IMPRESSION: Widespread bilateral noncalcified pulmonary nodules, suspicious for metastatic disease. Small pericardial effusion. TD: 09/08/2017 20:41
== END 2017-09-08 11:11 | disposition home or self-care (01) ==
LOC: DI 11:10
PROVIDERS: ATTEND Surgery
DX: R91.8 Other nonspecific abnormal finding of lung field (principal); I31.3 Pericardial effusion (noninflammatory); C50.919 Malignant neoplasm of unspecified site of unspecified female breast
CPT/HCPCS: 71250

== ENCOUNTER 2017-10-01 11:11 | Outpatient (CLI) | payer MEDICARE, OTHER ==
--- NOTE | 2017-10-02 08:36 | Nuclear Medicine Report ---
EXAM: BONE SCAN EXAM DATE: 10/01/2017 05:15 PM. CLINICAL HISTORY: R BREAST CANCER. COMPARISON: CT chest 09/08/2017. CT abdomen/pelvis 08/22/2017.. TECHNIQUE: Following the intravenous administration of 29.9 mCi of technetium 99m MDP and an appropri ate delay, a whole-body scan was performed in anterior and posterior projections. Site-specific spot views of the region of interest were obtained in various projections. FINDINGS: Normal renal radiotracer uptake and bladder activity. Normal soft tissue activity. Overall normal osseous uptake. Mildly asymmetric uptake at the acromioclavicular, sternoclavicular joints, first CMC joints bilatera lly, and at the left midfoot, likely degenerative. Mild multilevel thoracic and lumbar spinal uptake likely degenerative. No suspicious focal uptake. IMPRESSION: 1. No convincing scintigraphic evidence of osseous metastasis. [facility] Referring Provider Line: [phone] SITE ID: [id number]
== END 2017-10-01 11:12 | disposition home or self-care (01) ==
LOC: DI 11:11
PROVIDERS: ATTEND Internal Medicine Hematology & Oncology
DX: C50.911 Malignant neoplasm of unspecified site of right female breast (principal)
CPT/HCPCS: 78306; A9503

== ENCOUNTER 2017-10-19 13:13 | Outpatient (CLI) | payer MEDICARE, OTHER ==
--- NOTE | 2017-10-20 14:23 | DEXA Report ---
DEXA SCAN: 10/19/2017 CLINICAL INDICATION: Postmenopausal. TECHNIQUE: Dual energy x-ray absorptiometry (DXA) was performed on a [employer] system. Regions measured are the AP spine, femoral neck, and, if needed, forearm. COMPARISON: None. In accordance with the International Society for Clinical Densitometry (ISCD) guidelines, data from previous exams may be reanalyzed using current recommendations and techniques. This is done to allow a more accurate basis for comparison with the current study. FINDINGS: The data for the lumbar spine is as follows: REGION BMD (g/cm/cm) T-SCORE Z-SCORE L1 1.153 0.2 1.9 L2 1.098 -0.9 0.9 L3 1.273 0.6 2.4 L4 1.396 1.6 3.4 TOTAL 1.244 0.5 2.3 NOTE: All evaluable vertebrae are used for classification. The data for the hip is as follows: REGION BMD (g/cm/cm) T-SCORE Z-SCORE Neck 0.614 -3.1 -0.7 TOTAL 0.823 -1.5 0.8 NOTE: The femoral neck or total proximal femur, whichever is lowest, is used for classification. IMPRESSION THE WHO CLASSIFICATION BASED ON THE INTERNATIONAL REFERENCE STANDARD IS OSTEOPOROSIS (REFERENCE LEFT FEMORAL NECK). THE FRACTURE RISK IS HIGH. RECOMMENDATION: Patients with diagnosis of osteoporosis or osteopenia should have regular bone mineral density assessment. For those eligible for Medicare, routine testing is allowed once every 2 years. Testing frequency can be increased for patients who have rapidly progressing disease or for those who are receiving medical therapy to restore bone mass. COMMENT: World Health Organization (WHO) definitions for osteoporosis and osteopenia: NORMAL BMD: T-score at 1.0 or higher, fracture risk is low. OSTEOPENIA BMD: T-score between 1.0 and -2.5, fracture risk is increased. OSTEOPOROSIS BMD: T-score at 2.5 or lower, fracture risk high. National Osteoporosis Foundation recommends: 1. Obtain adequate dietary calcium (at least 1200 mg per day) and vitamin D (400 -800 international units per day). 2. Participate, as appropriate, in regular weightbearing and muscle- strengthening exercise. 3. Avoid tobacco use and reduce alcohol and caffeine intake. 4. For more detailed information see the website at www.NOF.org. TD: 10/19/2017 15:48 MTDVicky
== END 2017-10-19 13:14 | disposition home or self-care (01) ==
LOC: DI 13:13
PROVIDERS: ATTEND Internal Medicine Hematology & Oncology
DX: M81.0 Age-related osteoporosis without current pathological fracture (principal)
CPT/HCPCS: 77080

== ENCOUNTER 2018-06-29 14:08 | Outpatient (CLI) | payer MEDICARE, OTHER ==
[2018-06-29 19:03] LABS: INR 2.4 (0.8-1.2); PT - PROTHROMBIN TIME 27.3 secs (9.9-12.6)
== END 2018-06-29 14:09 | disposition home or self-care (01) ==
LOC: LAB.WCP 14:08
PROVIDERS: ATTEND Family Medicine
DX: I48.0 Paroxysmal atrial fibrillation (principal); Z79.01 Long term (current) use of anticoagulants
CPT/HCPCS: 36415; 85610

== ENCOUNTER 2018-10-21 11:30 | Outpatient (CLI) | payer MEDICARE, OTHER ==
--- NOTE | 2018-10-21 15:31 | XRAY Report ---
Reason: OSTEOARTHRITIS Procedure Date: 10/21/2018 Accession Number: [id number] / [id number] Procedure: WCP - Knee 3 View LT CPT Code: FULL RESULT: EXAM: LEFT KNEE RADIOGRAPHY EXAM DATE: 10/21/2018 11:57 AM. CLINICAL HISTORY: Osteoarthritis. COMPARISON: Knee 2 view left 01/26/2017 1:57 PM. TECHNIQUE: 3 views. FINDINGS: Bones: Normal. No fractures or bone lesions. Joints: Small joint effusion. No subluxation. Soft Tissues: Vascular calcifications. IMPRESSION: Small joint effusion. [facility]
--- NOTE | 2018-10-21 15:33 | XRAY Report ---
Reason: HIP PAIN, LEFT Procedure Date: 10/21/2018 Accession Number: [id number] / [id number] Procedure: WCP - Hip w/Pelvis 2-3V LT CPT Code: FULL RESULT: EXAM: LEFT HIP RADIOGRAPHY EXAM DATE: 10/21/2018 11:57 AM. CLINICAL HISTORY: Hip pain, left. COMPARISON: Bone scan 10/01/2017 3:26 PM. TECHNIQUE: 2 views. FINDINGS: Bones: Normal. No fractures or bone lesion. Joints: Status post right total hip arthroplasty. No dislocation. The hip joint space is severely narrowed. Soft Tissues: Normal. No soft tissue swelling. IMPRESSION: Advanced degenerative changes of the left femoral acetabular joint. [facility]
== END 2018-10-21 11:31 | disposition home or self-care (01) ==
LOC: DI.WCP 11:30
PROVIDERS: ATTEND Family Medicine
DX: M16.12 Unilateral primary osteoarthritis, left hip (principal); M25.462 Effusion, left knee

== ENCOUNTER 2018-11-03 08:00 | Outpatient (CLI) | payer MEDICARE, OTHER | END 2018-11-03 23:59 | disposition home or self-care (01) | LOC: LAB.WCP 08:00 | PROVIDERS: ATTEND Physician Assistant | DX: I48.0 Paroxysmal atrial fibrillation (principal); Z79.01 Long term (current) use of anticoagulants | CPT/HCPCS: 81025 ==

== ENCOUNTER 2018-11-10 08:00 | Outpatient (CLI) | payer MEDICARE, OTHER | END 2018-11-10 23:59 | disposition home or self-care (01) | LOC: LAB.WCP 08:00 | PROVIDERS: ATTEND Family Medicine | DX: I48.91 Unspecified atrial fibrillation (principal); Z79.01 Long term (current) use of anticoagulants ==

== ENCOUNTER 2018-11-11 13:09 | Outpatient (CLI) | payer MEDICARE, OTHER ==
--- NOTE | 2018-11-11 14:39 | XRAY Report ---
Reason: HAND PAIN,LEFT Procedure Date: 11/11/2018 Accession Number: [id number] / [id number] Procedure: XR - Hand 3 View LT CPT Code: FULL RESULT: EXAM: LEFT HAND RADIOGRAPHY EXAM DATE: 11/11/2018 02:04 PM. CLINICAL HISTORY: Hand pain, left. COMPARISON: None. TECHNIQUE: 3 views. FINDINGS: Bones: The bones are qualitatively osteopenic; this limits evaluation for underlying fractures or masses. No fracture is detected. Joints: There are degenerative changes of the first carpometacarpal joint, moderate and mild joint space narrowing of the interphalangeal joints. Soft Tissues: Normal. No soft tissue swelling. IMPRESSION: Qualitative osteopenia and osteoarthrosis. [facility]
== END 2018-11-11 13:10 | disposition home or self-care (01) ==
LOC: DI 13:09
PROVIDERS: ATTEND Family Medicine
DX: M19.042 Primary osteoarthritis, left hand (principal); M85.842 Other specified disorders of bone density and structure, left hand

== ENCOUNTER 2018-11-19 16:00 | Outpatient (CLI) | payer MEDICARE, OTHER ==
[~2018-11-19 16:00] MED LIST changes: +GADOBUTROL 10 MMOL/10 ML VIAL ONE; -IOPAMIDOL-300 100 ML VIAL ONE; -IOPAMIDOL-300 50 ML VIAL ONE
[2018-11-19] MEDS ORDERED: GADOBUTROL 10 MMOL/10 ML VIAL IVP ONE (16:19)
--- NOTE | 2018-11-20 08:50 | MRI Report ---
Reason: EMBOLISM, VISION LOSS, SUDDEN, AFIB Procedure Date: 11/19/2018 Accession Number: [id number] / [id number] Procedure: MRI - Brain W/WO CPT Code: FULL RESULT: EXAM: MRI BRAIN WITHOUT AND WITH CONTRAST EXAM DATE: 11/19/2018 04:00 PM. CLINICAL HISTORY: Sudden vision loss bilaterally. Dizziness. Atrial fibrillation. COMPARISON: HEAD W/O 03/12/2017 11:23 AM. TECHNIQUE: Multiplanar, multisequence T1-weighted and fluid-sensitive MR sequences of the brain were performed. Sequences optimized for routine evaluation. Other: None. IV Contrast: 7.5 cc Gadavist. Findings: Relevant images are indicated (image number, series number). There is no acute/subacute ischemic change in the brain. There is no hemosiderin deposition present in the brain. There is no hemorrhage, mass or midline shift. Orbital contents negative, patient post bilateral lens surgery. Paranasal sinuses, mastoid air cells negative. Limited evaluation suprahyoid neck unremarkable. Normal expected vascular flow voids of the major arteries/veins. No suspicious marrow lesions. Mild focal white matter disease left side of vira, left external capsule, minimal scattered subcortical, periventricular white matter disease. There is moderate generalized brain atrophy especially bilateral parietal cortices. Mild compensatory ventricular enlargement. Postcontrast imaging demonstrates no abnormal enhanced when of the brain, meninges. Midbrain unremarkable, craniocervical junction, limited upper cervical cord negative. Impressions: 1. No acute/subacute ischemic change. 2. Moderate brain atrophy especially bilateral parietal cortex. 3. Minimal/mild white matter disease likely related to chronic small vessel ischemic disease. 4. Postcontrast imaging negative. [facility]
[2018-11-26] MEDS ORDERED: GADOBUTROL 7.5 MMOL/7.5 ML VIAL IVP ONE (15:04)
--- NOTE | 2018-11-26 16:02 | MRI Report ---
Reason: SUDDEN VISION LOSS, EMBOLISM Procedure Date: 11/19/2018 Accession Number: [id number] / [id number] Procedure: MRI - Angio Brain W/O (MRA) CPT Code: FULL RESULT: EXAM MRA BRAIN EXAM DATE: 11/19/2018 02:15 PM. CLINICAL HISTORY: SUDDEN VISION LOSS, EMBOLISM. COMPARISON accompanying MRI brain: None. TECHNIQUE: Multiplanar, multisequence MRA sequences of the brain were performed. Other: None. Post-processing: Multiplanar 3D MIP reconstructions. IV Contrast: None. Findings: Relevant images are indicated (image number, series number). Left ICA: Patent including MCA/ANNAMARIE. Right ICA: Patent including MCA/ANNAMARIE. Posterior circulation: Patent distal bilateral vertebral arteries, basilar artery, patent bilateral OPERATIONS LEAD. Impressions: 1. Patent major arteries of the brain, with normal anatomical variability as described. No aneurysm, dissection, stenosis, AVM. [facility]
== END 2018-11-19 23:59 | disposition home or self-care (01) ==
LOC: DI 16:00
PROVIDERS: ATTEND Family Medicine
DX: I74.9 Embolism and thrombosis of unspecified artery (principal); H53.139 Sudden visual loss, unspecified eye; H54.62 Unqualified visual loss, left eye, normal vision right eye; G31.9 Degenerative disease of nervous system, unspecified; R90.82 White matter disease, unspecified
CPT/HCPCS: 70544; 70553; A9585

== ENCOUNTER 2018-11-19 16:19 | Outpatient (CLI) | payer MEDICARE, OTHER | END 2018-11-19 16:20 | disposition home or self-care (01) | LOC: DI 16:19 | PROVIDERS: ATTEND Family Medicine | DX: Z53.9 Procedure and treatment not carried out, unspecified reason (principal) ==

== ENCOUNTER 2018-11-24 08:00 | Outpatient (CLI) | payer MEDICARE, OTHER | END 2018-11-24 23:59 | disposition home or self-care (01) | LOC: LAB.WCP 08:00 | PROVIDERS: ATTEND Family Medicine | DX: I48.91 Unspecified atrial fibrillation (principal); Z79.01 Long term (current) use of anticoagulants ==

== ENCOUNTER 2018-11-26 13:57 | Outpatient (CLI) | payer MEDICARE, OTHER ==
[2018-11-26] MEDS ORDERED: GADOBUTROL 7.5 MMOL/7.5 ML VIAL ONE (14:27)
--- NOTE | 2018-11-26 16:04 | MRI Report ---
Reason: EMBOLISM Procedure Date: 11/26/2018 Accession Number: [id number] / [id number] Procedure: MRI - Angio Neck W/WO (MRA) CPT Code: FULL RESULT: EXAM: MR ANGIOGRAM NECK EXAM DATE: 11/26/2018 02:55 PM. CLINICAL HISTORY: Sudden temporary vision loss, dizziness, memory loss. COMPARISON: Prior MRI brain/MRA brain 11/19/2018. TECHNIQUE: Multiplanar, multisequence MRA sequences of the neck were performed. Other: None. Post-processing: Multiplanar 3D MIP reconstructions. IV Contrast: 7.5 cc Gadavist. Evaluation of arterial stenosis is based on a NASCET method of measurement. Findings: Relevant images are indicated (image number, series number). Aortic arch: Patent, bovine configuration. Left carotid artery: Widely patent. Right carotid artery: Widely patent. Left vertebral artery: Widely patent. Right vertebral artery, widely patent. Impressions: 1. Widely patent bilateral carotid/vertebral arteries. No aneurysm, dissection, stenosis, or AVM. [facility]
== END 2018-11-26 13:58 | disposition home or self-care (01) ==
LOC: DI 13:57
PROVIDERS: ATTEND Family Medicine
DX: I74.9 Embolism and thrombosis of unspecified artery (principal); H54.62 Unqualified visual loss, left eye, normal vision right eye; H53.139 Sudden visual loss, unspecified eye; G31.9 Degenerative disease of nervous system, unspecified
CPT/HCPCS: 70544; 70549; 70553; A9585

== ENCOUNTER 2018-11-27 11:06 | Outpatient (CLI) | payer MEDICARE, OTHER ==
--- NOTE | 2018-11-29 09:12 | Ultrasound Report ---
Reason: EMBOLISM, VISION LOSS, SUDDEN, AFIB Procedure Date: 11/27/2018 Accession Number: [id number] / [id number] Procedure: US - Carotid Doppler Complete CPT Code: FULL RESULT: EXAM: BILATERAL CAROTID AND VERTEBRAL ARTERY DUPLEX DOPPLER ULTRASOUND: EXAM DATE: 11/27/2018 01:45 PM CLINICAL HISTORY: Embolism, vision loss, sudden, Afib. COMPARISON: CAROTID DOPPLER COMPLETE 03/12/2017 11:57 AM. TECHNIQUE: Grayscale imaging, color Doppler, and duplex spectral Doppler were used to evaluate the carotid and vertebral arteries bilaterally. Static images were obtained. FINDINGS: Subjectively, there is mild bilateral intimal thickening of the carotid systems. A small amount of smooth calcified plaque is seen predominantly at the bifurcations, left greater than right. No hemodynamically significant plaque is identified in the right or left common or internal carotid arteries. Normal antegrade flow is present in bilateral vertebral arteries. VELOCITIES (cm/sec): Right CCA mid: PSV 52 cm/sec CCA dist: PSV 35.5 cm/sec ICA prox: PSV 40 cm/sec, EDV 13 cm/sec ICA mid: PSV 59 cm/sec, EDV 16.5 cm/sec ICA dist: PSV 54 cm/sec, EDV 17.1 cm/sec ECA: PSV 47.3 cm/sec Vert: PSV 62.4 cm/sec ICA/CCA: 1.6 Left CCA mid: PSV 32.3 cm/sec CCA dist: PSV 34.2 cm/sec ICA prox: PSV 26.6 cm/sec, EDV 10.3 cm/sec ICA mid: PSV 50.7 cm/sec, EDV 15 cm/sec ICA dist: PSV 51.5 cm/sec, EDV 18 cm/sec ECA: PSV 29.4 cm/sec Vert: PSV 30.5 cm/sec ICA/CCA: 1.5 ICA diameter stenosis: Right: <50% by velocity and <70% by NASCET criteria. Left: <50% by velocity and <70% by NASCET criteria. IMPRESSION: 1. Subjectively mild bilateral carotid artery plaquing. 2. In the right carotid artery there are no elevated carotid artery velocities to suggest hemodynamically significant stenosis. 3. In the left carotid artery there are no elevated carotid artery velocities to suggest hemodynamically significant stenosis. 4. Normal antegrade flow is present in bilateral vertebral arteries. 5. Incidental discovery of a right 4.7 cm thyroid nodule. Recommend dedicated thyroid ultrasound unless this nodule has already been characterized. General Recommendations: Stenosis =50% ICA - Follow-up ultrasound 6-12 months Stenosis <50% ICA - High Risk Patient with plaque - Follow-up ultrasound 1-2 years Normal Study but High Risk Patient - Follow-up ultrasound 3-5 years Management recommendations and diagnostic criteria are based on current IAC endorsed standards in Carotid Artery Stenosis: Grayscale and Doppler Ultrasound Diagnosis. Validated velocity measurements with angiographic measurements and velocity criteria are extrapolated from diameter data as defined by the Society of Radiologists in Ultrasound Consensus Conference Radiology 2003; 229;340-346. [facility]
== END 2018-11-27 11:07 | disposition home or self-care (01) ==
LOC: DI 11:06
PROVIDERS: ATTEND Family Medicine
DX: I74.9 Embolism and thrombosis of unspecified artery (principal); H53.139 Sudden visual loss, unspecified eye; I48.91 Unspecified atrial fibrillation; I31.3 Pericardial effusion (noninflammatory)
CPT/HCPCS: 93306; 93880

== ENCOUNTER 2018-12-18 11:49 | Outpatient (CLI) | payer MEDICARE, OTHER ==
--- NOTE | 2018-12-20 10:57 | Ultrasound Report ---
Reason: THYROID NODULE Procedure Date: 12/18/2018 Accession Number: [id number] / [id number] Procedure: US - Head or Neck Soft Tissue CPT Code: FULL RESULT: EXAM: THYROID ULTRASOUND EXAM DATE: 12/18/2018 12:24 PM. CLINICAL HISTORY: Thyroid nodules noted on carotid ultrasound. COMPARISON: CAROTID DOPPLER COMPLETE 11/27/2018 12:57 PM. TECHNIQUE: Real time sonographic imaging of the thyroid was performed by the speaker mounter. Multiple metals sales representative static images were saved for review. FINDINGS: THYROID GLAND: Right Lobe: 4.1 x 3.2 x 4.1 cm, volume 28 cc. Normal background echotexture. Right Lobe Nodules: Dominant predominantly solid centrally hypoechoic/cystic appearing 5.0 x 3.2 x 3.8 cm nodule. Left Lobe: 3.0 x 1.2 x 1.3 cm, volume 2.4 cc. Normal background echotexture. Left Lobe Nodules: Multiple very low suspicion predominantly cystic nodules the largest of which measures 1.0 x 0.8 x 0.9 cm. A 0.5 x 0.5 x 0.4 cm nodule appears to be partially cystic partially solid. Isthmus: 0.1 cm AP. Isthmic Nodules: Hypoechoic 1.0 x 0.6 x 0.8 cm nodule. LYMPH NODES: No adenopathy demonstrated in the central or lateral compartment. OTHER: None. IMPRESSION: Recommend tissue sampling by ultrasound-guided fine-needle aspiration of the dominant 5 cm right thyroid nodule. Management recommendations are based on 2015 [place] [employer] Management Guidelines for Adult Patients with Thyroid Nodules and Differentiated Thyroid Cancer. [facility]
== END 2018-12-18 11:50 | disposition home or self-care (01) ==
LOC: DI 11:49
PROVIDERS: ATTEND Family Medicine
DX: E04.2 Nontoxic multinodular goiter (principal)
CPT/HCPCS: 76536

== ENCOUNTER 2018-12-30 14:19 | Outpatient (CLI) | payer MEDICARE, OTHER ==
--- NOTE | 2018-12-31 11:47 | XRAY Report ---
Reason: FOOT PAIN,LEFT Procedure Date: 12/30/2018 Accession Number: [id number] / [id number] Procedure: WCP - Foot 3 View LT CPT Code: FULL RESULT: EXAM: LEFT FOOT RADIOGRAPHY EXAM DATE: 12/30/2018 02:13 PM. CLINICAL HISTORY: Foot pain, left. COMPARISON: None. TECHNIQUE: 3 views. FINDINGS: Bones: There is a fixation screw proximal third diaphysis of the first metatarsal. Mild degenerative joint space narrowing and osteophytosis noted of the first MTP joint and IP joint of the hallux. Mild soft tissue swelling is noted around the first MTP joint. On the oblique view, there is questionable minimal periarticular erosion. No periosteal new bone. No fractures noted. Joints: Normal. No subluxations. Soft Tissues: As above. IMPRESSION: Mild degenerative changes of the first MTP joint with nonspecific soft tissue swelling slightly out of proportion to degenerative changes. Possible small periarticular erosion. In the right clinical setting, consider gout. [facility]
== END 2018-12-30 14:20 | disposition home or self-care (01) ==
LOC: DI.WCP 14:19
PROVIDERS: ATTEND Family Medicine
DX: M19.072 Primary osteoarthritis, left ankle and foot (principal)
CPT/HCPCS: 36415; 84550

== ENCOUNTER 2018-12-30 14:37 | Outpatient (CLI) | payer MEDICARE, OTHER | END 2018-12-30 23:59 | disposition home or self-care (01) | LOC: LAB.WCP 14:37 | PROVIDERS: ATTEND Family Medicine | DX: M79.672 Pain in left foot (principal) | CPT/HCPCS: 36415; 84550 ==

== ENCOUNTER 2019-03-16 08:00 | Outpatient (CLI) | payer MEDICARE, OTHER | END 2019-03-16 23:59 | disposition home or self-care (01) | LOC: LAB.WCP 08:00 | PROVIDERS: ATTEND Physician Assistant | DX: I48.91 Unspecified atrial fibrillation (principal); Z79.01 Long term (current) use of anticoagulants ==

== ENCOUNTER 2019-03-24 08:00 | Outpatient (CLI) | payer MEDICARE, OTHER | END 2019-03-24 23:59 | disposition home or self-care (01) | LOC: LAB.WCP 08:00 | PROVIDERS: ATTEND Family Medicine | DX: I48.0 Paroxysmal atrial fibrillation (principal); Z79.01 Long term (current) use of anticoagulants ==

== ENCOUNTER 2019-04-07 08:00 | Outpatient (CLI) | payer MEDICARE, OTHER | END 2019-04-07 23:59 | disposition home or self-care (01) | LOC: LAB.WCP 08:00 | PROVIDERS: ATTEND Family Medicine | DX: I48.91 Unspecified atrial fibrillation (principal); Z79.01 Long term (current) use of anticoagulants ==

== ENCOUNTER 2019-04-21 08:00 | Outpatient (CLI) | payer MEDICARE, OTHER | END 2019-04-21 23:59 | disposition home or self-care (01) | LOC: LAB.WCP 08:00 | PROVIDERS: ATTEND Physician Assistant Medical | DX: I48.91 Unspecified atrial fibrillation (principal); Z79.01 Long term (current) use of anticoagulants ==